=== PATIENT | male | born 1995 | race Caucasian/White ===

== ENCOUNTER 2023-10-27 18:16 | Emergency (ER) | payer SELFPAY ==
[2023-10-27 18:19] VITALS: BP 165/95
[2023-10-27 19:41] VITALS: BP 130/86
[2023-10-27 19:44] VITALS: BMI 34.2
[2023-10-27 20:00] VITALS: BP 132/88
--- NOTE | 2023-10-27 22:35 | ED.GENMED ---
History of Present Illness
General
Chief Complaint: Breathing Problem
Source: patient
Exam Limitations: none
Time Seen by Provider: 10/27/23 19:23
Nursing documentation reviewed up to this point in time: agreed with
History of Present Illness
History of Present Illness:
Patient to ED for eval of cough. Symptoms started 7 days ago 4 days ago he started using musinex with improvement so he discontinued. Tionight he started coughing again and couldnt catch his breath. he then vomitied. This happened again just
prior to coming to ED. No fever/chills. No difficulty swallowing. No sorethroat. Currently he is awake and alert, nontoxic appearing. PUlse ox 99% RA
Past History
Past History
ED Past Medical History: None
Review of Systems
Review of Systems
Allergies reviewed?: Yes
All Other Systems: ROS reviewed and negative except as documented in HPI and ROS
Constitutional: Reports no symptoms
EENT: Reports no symptoms
Respiratory: Reports cough
Cardiac: Reports no symptoms
ABD/GI: Reports no symptoms
: Reports no symptoms
Musculoskeletal: Reports no symptoms
Skin: Reports no symptoms
Neurological: Reports no symptoms
Psychiatric: Reports no symptoms
Phy Exam
General Physical Exam
General Presentation: well appearing and no apparent distress
General age: appears stated age
General Skin: warm and dry
General Habitus: normal
General Mental: alert
ENT Exam
ENT Exam: EOMI, pharynx normal, neck supple, normocephalic and swallowing well
Cardiovascular Exam
Cardiovascular Exam: regular rate/rhythm and no edema
Pulmonary Exam
Pulmonary Exam: lungs clear, no respiratory distress and chest non tender
Musculoskeletal Exam
Musculoskeletal Exam: full ROM and neuro vasc intact
Skin Exam
Skin Exam: normal color, warm/dry and no rash
Psychiatric Exam
Psychiatric Exam: normal mood/affect
Course
Orders/Labs/Results
Orders:
Orders
10/27/23 18:20
EKG [Electrocardiogram (*1)] Urgent
Reason for Study: Shortness of Breath
CR Chest - 2 Views Urgent
Comment:
Reason For Exam: cough
10/27/23 18:21
EKG- Treatment ONCE
10/27/23 20:20
Dexamethasone Pf [Decadron] 10 mg PO NOW STA
Ipratropium/Albuterol Sulfate [Duoneb] 3 ml INH R NOW STA
Vital Signs
Initial and Last Documented VS:
Initial Vital Signs
Temp Pulse Resp BP Pulse Ox
99.5 F 109 18 165/95 100
10/27/23 18:19 10/27/23 18:19 10/27/23 18:19 10/27/23 18:19 10/27/23 18:19
Last Documented Vital Signs
Temp Pulse Resp BP Pulse Ox
98.1 F 95 18 132/88 96
10/27/23 20:00 10/27/23 20:00 10/27/23 20:00 10/27/23 20:00 10/27/23 20:49
*Radiology
Radiology exam reviewed: radiology read reviewed
*Pulse Oximetry
Patient hypoxic: no
*Critical Care Note
Total Time (30-74mins, 75-104mins- exclusive of procedures): Not Applicable
Update Note
Update Note:
Patient remains awake and alert, nontoxic appearing. Pulse ox 99% RA. Declined meds in dept, requesting rx to pharmacy. Given instructions on s/s to return to ED and he is agreeable to plan.
ED Attending Note
-
Portions of this chart may have been created with voice recognition software.� Occasional wrong word or��sound alike� substitutions may have occurred due to the inherent limitations of voice recognition software.
Discharge Plan
Departure
Patient Disposition: Home (Routine Discharge)
Date of Disposition: 10/27/23
Time of Disposition: 20:51
Patient with high blood pressure during this ER visit?: No
Condition: Good
Covid-19: Not Applicable
Discharge Problem:
Acute bronchitis
Instructions: Acute Bronchitis, Adult (DC)
Prescriptions:
New
prednisone 10 mg Tablet
See Rx Instructions .ROUTE .COMPLEX Qty: 30 0RF
Rx Instructions:
Take By Mouth:
40 mg daily x3 days, 30 mg daily x3 days,
20 mg daily x3 days, 10 mg daily x3 days.
albuterol sulfate 2.5 mg /3 mL (0.083 %) solution for nebulization
2.5 mg inhalation Q4H PRN (Reason: bronchospasm) Qty: 90 1RF
Referrals:
NONE,* [Family Provider] -
Activity Restrictions/Additional Instructions:
Follow up with your family doctor. return to the emergency department immediately for any changes in/worsening of your symptoms.
Interventions
Interventions:
*Risk Screen - Suicide Last Done: 10/27/23 21:02
*General Assessment Last Done: 10/27/23 21:02
*Neglect/Abuse Screening Last Done: 10/27/23 21:02
ED- Fall Risk Assessment Last Done: 10/27/23 19:17
*ED COVID-19 Vaccine History Last Done: 10/27/23 21:02
*Nursing Disposition Last Done: 10/27/23 21:02
ED- Cardiac Assessment Last Done: 10/27/23 19:44
ED- Pulmonary Assessment Last Done: 10/27/23 19:44
Discharge Date and Time
Discharge Date/Time: 10/27/23 21:03
Print Language: TAIWANESE
== END 2023-10-27 21:03 | disposition home or self-care (01) ==
LOC: EMR 18:16
PROVIDERS: EMERGENCY PHYSICIAN Emergency Medicine
DX: J20.9 Acute bronchitis, unspecified (principal)
CPT/HCPCS: 99283; 71046; 93005

== ENCOUNTER 2024-03-15 01:35 | Observation (INO) | payer BC, SELFPAY ==
[2024-03-14 18:35] VITALS: BP 138/74
[2024-03-14 18:52] LABS: % Basophils 0.4 % (0-2); % Eosinophils 0.6 % (0-6); % Immature Granulocytes 0.7 % (0-0.5); % Lymphocytes 8.6 % (20.5-51.1); % Neutrophils 83.7 % (42.2-75.2); Absolute Basophils 0.1 10^3/uL (0-0.2); Absolute Eosinophils 0.1 10^3/uL (0-0.7); Absolute Immature Granulocytes 0.1 10^3/uL (0-0.05); Absolute Lymphocytes 1.5 10^3/uL (1.2-3.4); Absolute Monocytes 1.1 10^3/uL (0.1-0.6); Absolute Neutrophils 14.9 10^3/uL (1.4-6.5); Hematocrit 44.3 % (39.0-52.0); Hemoglobin 15.6 g/dL (13.0-18.0); Mean Corp Hgb Conc. 35.2 g/dL (33.0-37.0); Mean Corpuscular Hgb 30.1 pg (27.0-31.0); Mean Corpuscular Volume 85.4 fL (80.0-94.0); Nucleated Red Blood Cells % 0 % (-); Platelet Count 328 10^3/uL (130-400); Red Blood Cell Count 5.19 10^6/uL (4.70-6.10); Red Cell Dist. Width 11.7 % (11.5-14.5); White Blood Cell Count 17.8 10^3/uL (4.8-10.8)
[2024-03-14 19:08] LABS: ALT (SGPT) 33 U/L (0-50); AST (SGOT) 34 U/L (17-59); Albumin 5.1 g/dl (3.5-5.0); Alkaline Phosphatase 96 U/L (38-126); Blood Urea Nitrogen 17 mg/dl (9-20); Carbon Dioxide 23 mmol/L (22-30); Chloride 99 mmol/L (98-107); Glucose 128 mg/dl (70-99); Lipase 77 U/L (23-300); Potassium 3.3 mmol/L (3.5-5.1); Sodium 136 mmol/L (135-145); Total Bilirubin 0.7 mg/dl (0.2-1.3); eGFR > 60.00
[2024-03-14 20:17] VITALS: BP 133/80
[2024-03-14 22:37] VITALS: BMI 34.5
[2024-03-14 22:43] VITALS: BP 135/85
[2024-03-14] MEDS: ZOFRAN 4 MG IV (23:28)
--- NOTE | 2024-03-14 23:28 | ED.GENMED ---
History of Present Illness
General
Chief Complaint: Abdominal Pain
Time Seen by Provider: 03/14/24 23:02
History of Present Illness
History of Present Illness:
28-year-old otherwise healthy male presents to the emergency department for evaluation of right lower quadrant abdominal pain beginning earlier today associated with nausea and vomiting. Pain is colicky in nature and radiates across the entire
abdomen. No history of abdominal surgery. No fevers or chills. No diarrhea.
Past History
Past History
ED Past Medical History: None
Review of Systems
Review of Systems
Allergies reviewed?: Yes
All Other Systems: ROS reviewed and negative except as documented in HPI and ROS
Phy Exam
Physical Exam
Physical Exam:
GEN: Well appearing, NAD, WDWN
HEENT: Oral mucosa moist, no scleral icterus
Cardiac: Regular rate
Lung: No respiratory distress, no tachypnea
Abdomen: Soft, focal right lower quadrant tenderness, no rigidity or peritoneal signs
MSK: No gross deformity or injuries
Skin: Good color, no pallor or jaundice, no rashes
Neuro: AO x3, moves all extremities freely
Psych: Calm, cooperative
Course
Orders/Labs/Results
Orders:
Orders
03/14/24 18:46
Complete Blood Count/With Diff Urgent
Comprehensive Metabolic Panel Urgent
Lipase Urgent
03/14/24 20:06
EKG [Electrocardiogram (*1)] Urgent
Reason for Study: Shortness of Breath
03/14/24 20:07
EKG- Treatment ONCE
03/14/24 23:25
HYDROmorphone [Dilaudid] 0.5 mg .ROUTE .STK-MED ONE
Ondansetron Injectable [Zofran] 4 mg .ROUTE .STK-MED ONE
03/14/24 23:27
Ondansetron Injectable [Zofran] 4 mg IV NOW STA
03/14/24 23:28
CT Abd/Pel (IV only)-DH only Urgent
Comment:
Reason For Exam: RLQ pain
HYDROmorphone [Dilaudid] 0.5 mg IV NOW STA
03/15/24 00:17
Piperacillin/Tazo 3.375 Gram [Zosyn] 3.375 gram in 50 ml IV NOW
03/15/24 01:13
Admit/Transfer Patient As Directed
Co-Sign Provider:
Level of Care: Observation services
Assign to:: Medical/Surgical
Physician / Group: [facility]/general surgery service
Diagnosis: acute appendicitis
03/15/24 01:14
PRN Pain Medication Management As Directed
May give lesser potent ordered pain med per pt: Yes
preference::
Protocol:: Medication orders for pain may be administered in a
manner that supports deferring to patient preference
when the pt is:
- Requesting an ordered lesser potent pain medication.
Least to most potent pain medications are defined
as: acetaminophen < NSAID < tramadol < opioids
(morphine, oxycodone, hydromorphone).
- Requesting a lesser dose of the same medication IF
ORDERED.
- Requesting a less intrusive route of administration
if both routes are prescribed by the provider (PO <
IV).
03/15/24 01:15
Code Status As Directed
Resuscitation Status: Full Code
Abnormal Lab Results
03/14/24
18:46
WBC 17.8 H 10^3/uL
(4.8-10.8)
Abs Immat Gran (auto) 0.1 H 10^3/uL
(0-0.05)
Absolute Neuts (auto) 14.9 H 10^3/uL
(1.4-6.5)
Absolute Monos (auto) 1.1 H 10^3/uL
(0.1-0.6)
Immature Gran % 0.7 H %
(0-0.5)
Neutrophils % 83.7 H %
(42.2-75.2)
Lymphocytes % 8.6 L %
(20.5-51.1)
Potassium 3.3 L mmol/L
(3.5-5.1)
Glucose 128 H mg/dl
(70-99)
Albumin 5.1 H g/dl
(3.5-5.0)
03/14/24 18:46
03/14/24 18:46
Vital Signs
Initial and Last Documented VS:
Initial Vital Signs
Temp Pulse Resp BP Pulse Ox
98.1 F 89 20 138/74 99
03/14/24 18:35 03/14/24 18:35 03/14/24 18:35 03/14/24 18:35 03/14/24 18:35
Last Documented Vital Signs
Temp Pulse Resp BP Pulse Ox
98.1 F 91 16 109/63 96
03/14/24 18:35 03/15/24 03:14 03/15/24 03:15 03/15/24 03:14 03/15/24 03:15
MDM/Problems Addressed
MDM/Problems Addressed:
Imaging reveals acute appendicitis. Patient will be admitted to the surgical service for operative intervention, IV antibiotics initiated
*Critical Care Note
Total Time (30-74mins, 75-104mins- exclusive of procedures): Not Applicable
ED Attending Note
-
Portions of this chart may have been created with voice recognition software.� Occasional wrong word or��sound alike� substitutions may have occurred due to the inherent limitations of voice recognition software.
Discharge Plan
Departure
Patient Disposition: Admit
Date of Disposition: 03/15/24
Time of Disposition: 00:23
Presentation/result/management discussed w/ accepting MD/DO: General Surgery
Discharge Problem:
Acute appendicitis
Interventions
Interventions:
*Risk Screen - Suicide Last Done: 03/14/24 18:35
*General Assessment Last Done: 03/14/24 18:35
*Neglect/Abuse Screening Last Done: 03/14/24 18:35
ED- Fall Risk Assessment Last Done: 03/14/24 22:51
*ED COVID-19 Vaccine History Last Done: 03/14/24 22:38
WP-Ycnaxz-Ytbhoqingh Assessment Last Done: 03/14/24 23:12
[2024-03-14] MEDS: DILAUDID 0.5 MG IV (23:30)
[2024-03-14 23:50] VITALS: BP 153/74
[2024-03-15] VITALS (18 sets, daily range): BP systolic 92–146; BP diastolic 60–84
[2024-03-15] MEDS: ZOSYN 50 IV ×3 (00:42→12:11)
--- NOTE | 2024-03-15 03:21 | HPS.HSE ---
Addendum entered and electronically signed by Christiano Che MD 03/15/24 08:56:
I saw and examined the patient independently.
The Piping Blocker's note was reviewed and I agree with the note, assessment and plan except where noted below.
Comment: This is a 28-year-old male who presents with a 1 day history of abdominal pain. Exam, imaging, blood work all consistent with acute appendicitis.
Will plan for a laparoscopic appendectomy in the OR today.
N.p.o., IV fluids, IV antibiotics.
Risks/Benefits/Alternatives, expected postoperative course and possible complications (bleeding, infection, injury to surrounding structures, acute/chronic pain) discussed at length. Patient wishes to proceed with surgery. All questions answered.
Consent obtained.
I spent 50 minutes in total for the care of this patient today including direct patient care and counseling, reviewing labs, imaging, coordination of care, as well as documentation.
Original Note:
Family Physician
-
Family Physician: * NONE
Chief Complaint
-
abdominal pain with N/V
History of Present Illness
This is a pleasant 28 year old male who comes to the ED with his significant other due to diffuse abdominal pain which comes in waves along with intermittent nausea and vomiting. No other associated symptoms such as diarrhea, sob, CP or dysuria. He
is tender in RLQ on palpation. No PMH. Was seen here in October 2023 for bronchitis which resolved with albuterol inhaler and steroid taper. 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
products. During this interview he was thrilled he was feeling much better.
Medical History
Past Medical History
Past Medical History: Reports Other (bronchitis)
Past Surgical History: Reports None
Social History
Tobacco: Non-smoker
Alcohol: Occasional
Drug: None
Personal: Single
Living: With Family
Employment: Employed
Family History
Family History: Not pertinent
Allergies / Home Medications
Allergies reflects when Allergies were last updated in [employer].
Home Medications with original date entered in [employer]
Allergy/Medication List:
Allergies
Allergy/AdvReac Type Severity Reaction Status Date / Time
Fish Containing Products Allergy Anaphylaxis Verified 03/14/24 18:38
shellfish derived Allergy Anaphylaxis Verified 03/14/24 18:38
Home Medications
albuterol sulfate 2.5 mg/3 mL (0.083 %) solution for nebulization 2.5 mg (3 mL) inhalation Q4H PRN bronchospasm #90 mL 10/27/23
prednisone 10 mg tablet See Rx Instructions .Route .COMPLEX #30 tabs 10/27/23
Review of Systems
-
A 12 point ROS was completed and negative except as noted: Yes
Constitutional: Reports No Symptoms
EENT: Reports No Symptoms
Respiratory: Reports No Symptoms
Cardiac: Reports No Symptoms
Abdomen/GI: Reports Abdominal Pain
: Reports No Symptoms
Musculoskeletal: Reports No Symptoms
Skin: Reports No Symptoms
Endocrine: Reports No Symptoms
Hematologic/Lymphatic: Reports No Symptoms
Psych: Reports No Symptoms
Physical Exam
Vital Signs
Vital Signs
Temp Pulse Resp BP Pulse Ox
98.1 F 91 16 109/63 96
03/14/24 18:35 03/15/24 03:14 03/15/24 03:15 03/15/24 03:14 03/15/24 03:15
Physical Exam
General: Well Developed, Well Nourished, No Apparent Distress and Comfortable
HEENT: NormoCephalic, Moist mucous membranes, Atraumatic and PERRLA
Respiratory: Clear and Non Labored Respirations
Cardiac: S1/S2 and Regular Rhythm
Breast: Deferred by me
GI: Soft, Non Distended, Tender (Right) and No Hepatosplenomegaly
Genito-urinary: Clear Urine
Musculoskeletal: No Clubbing, No Cyanosis and No Edema
Skin: Warm and Dry
Neuro: Awake, Alert, AO x 3 and No Motor Deficits
Hematologic/Lymphatic: No Lymphadenopathy
Psych: Calm
Laboratory Results
-
03/14/24 18:46
03/14/24 18:46
Laboratory Results
Total Bilirubin 0.7 mg/dl (0.2-1.3) 03/14/24 18:46
AST 34 U/L (17-59) 03/14/24 18:46
ALT 33 U/L (0-50) 03/14/24 18:46
Alkaline Phosphatase 96 U/L (38-126) 03/14/24 18:46
Lipase 77 U/L (23-300) 03/14/24 18:46
Data Reviewed
-
CT Scan: Report Reviewed by me
Lab Data: Labs Reviewed by me
Old Records: Reviewed
Impression/Plan
-
IMPRESSION: acute appendicitis
PLAN: This is a pleasant 28 year old male who comes to the ED with his significant other due to diffuse abdominal pain which comes in waves along with intermittent nausea and vomiting. No other associated symptoms such as diarrhea, sob, CP or
dysuria. He is tender in RLQ on palpation. No PMH. Was seen here in October 2023 for bronchitis which resolved with albuterol inhaler and steroid taper. He takes no medications on regular basis and has anaphylaxis reaction to shellfish and other
fish-containing products. During this interview he was thrilled he was feeling much better.
*Acute appendicitis: NPO, IVF, zofran prn, dilaudid prn, Zosyn
*Hypokalemia: Normosol IVF, trend
*Leukocytosis: Zosyn, trend
*DVT prophylaxis: SCDs, oob ad dong.
*Disposition: FC. General surgery service.
[2024-03-15 06:33] LABS: Hematocrit 41.8 % (39.0-52.0); Hemoglobin 14.7 g/dL (13.0-18.0); Mean Corp Hgb Conc. 35.2 g/dL (33.0-37.0); Mean Corpuscular Volume 88.2 fL (80.0-94.0); Mean Platelet Volume 9.1 fL (7.4-10.4); Platelet Count 297 10^3/uL (130-400); Red Blood Cell Count 4.74 10^6/uL (4.70-6.10); Red Cell Dist. Width 11.8 % (11.5-14.5); White Blood Cell Count 14.7 10^3/uL (4.8-10.8)
[2024-03-15 06:49] LABS: Blood Urea Nitrogen 12 mg/dl (9-20); Calcium 9.4 mg/dl (8.4-10.2); Carbon Dioxide 25 mmol/L (22-30); Chloride 100 mmol/L (98-107); Estimated Creatinine Clearance > 125 ml/min; Glucose 116 mg/dl (70-99); Sodium 135 mmol/L (135-145); eGFR > 60.00
[2024-03-15] MEDS: NORMOSOL-R/PLASMALYTE-A 1000 IV (07:04)
[2024-03-15] MEDS: ZOFRAN 4 MG IV (07:06)
[2024-03-15] MEDS: DILAUDID 0.5 MG IV (07:07)
--- NOTE | 2024-03-15 07:27 | EDRN ---
the pt was received from previous film processing shift supervisor RN, the pt is resting in stretcher in the lowest position, side rails up x2 call kennedy within reach, HOB elevated, no s/s of distress, VS WNL, NSR in the 80's on the monitor, the pt is afebrile, the pt
was medicated for nausea and abdominal pain, Normosol was initiated by this RN @ 80cc/hour via RAC #[address], the pt denies needing anything at this time, the pt was educated on NPO status and the pt is agreeable to this, the pt states that
he has not yet seen a surgeon to discuss 'possible surgery options today', this RN notified the pt that someone would be in to speak with him, the pts is at the pts bedside, will continue to monitor the pt closely
--- NOTE | 2024-03-15 08:26 | EDRN ---
the pt pressed the call kennedy and this RN entered the pts room and the pt stated that he needed to use the bathroom, the pt was able to ambulate to the bathroom independently and back to the stretcher with no issues
--- NOTE | 2024-03-15 08:42 | EDRN ---
Johana from the OR called this RN and verbal report was given
--- NOTE | 2024-03-15 08:56 | W.SUR.PREOP ---
Pre-Operative Surgical Note
-
I have examined this patient prior to the performance of the scheduled procedure.
The patient's condition is unchanged from the time of the current History and
Physical and the patient is able to undergo the scheduled procedure.
[2024-03-15] MEDS: SUBLIMAZE 25 MCG IV (10:47)
--- NOTE | 2024-03-15 11:01 | W.IMMPOSTOP ---
Surgical Immed Post Op Note
-
Primary Surgeon: Christiano Che MD
Assisting Surgeon: None
Pre-op Diagnosis: Acute appendicitis
Post-op Diagnosis: Same
Procedure Performed: Laparoscopic appendectomy
Anesthesia Type: General
Specimen / Cultures: Appendix
Estimated Blood Loss: 1 cc
Complications: None
Operative Findings: 3 port appendectomy. Inflamed, nonperforated appendicitis. Base ligated with 0 PDS Endoloops x 2.
POST OP PLAN:
Will discharge home today
--- NOTE | 2024-03-15 11:02 | OR.RPT ---
Operative Report
Operative Report
Patient Name: Radha Del Rio
: 1995
Date of Operation: 03/15/2024
Preoperative Diagnosis: Acute Appendicitis
Postoperative Diagnosis: Same
Procedure(s):
Laparoscopic Appendectomy
Surgeon(s):
Dr. Che
Trial Attorney(s):
Isidoro Fragosoler
Anesthesia: General
Estimated Blood Loss: 1 cc
Urine Output: None
Drains/Lines/Implants: None
Specimens:
1. Appendix
HPI/Surgical Indications:
This is a 28-year-old male who presents with a 1 day history of abdominal pain. Exam, labs and imaging are consistent with acute appendicitis. Risks/Benefits/Alternatives were discussed at length, and the patient agreed to proceed with surgery.
Operative Findings: 3 port appendectomy. Inflamed, nonperforated appendicitis. Base ligated with 0 PDS Endoloops x 2.
Procedure Description:
The patient was placed in the supine position, with the left arm tucked, and general anesthesia was induced. The abdomen was prepared and draped in a sterile fashion so as to expose the entire abdomen. A surgical time out was taken. Abdominal access
was obtained with a left upper quadrant Veress entry which required a single pass. Due to his muscular nature the abdomen did not insufflate rapidly but we did confirm intra-abdominal access after placing a left lower quadrant 5 mm Optiview trocar.
After confirming no injury on entrance, two additional 5mm ports were placed in the suprapubic area just off midline and just to the left of the umbilicus. The patient was placed in Trendelenberg with the right slightly up . The appendix was
identified and a window was created in the mesoappendix. The appendix was suppurative and inflamed but not perforated, there was a bulbous portion in the midportion of the appendix that appeared somewhat gelatinous and could be appreciated through
the wall of the appendix but the capsule was not violated. Using a laparoscopic bipolar energy device, the meso appendix was divided. The base of the appendix appeared uninvolved and was ligated/divided using two 0-PDS Endoloops and the energy
device. The appendix was placed in a specimen retrieval bag. Hemostasis was confirmed and the ports were removed under visualization. The specimen was passed off the field. The skin for all three ports was closed with interrupted monocryls and
covered with dermabond. The patient was awoken from anesthesia in good condition and transported to the recovery area.
I was the attending physician and performed the procedure with assistance from the PRESSFITTER above. I was present for all portions of the case excluding skin closure.
Christiano Che MD
== END 2024-03-15 12:49 | disposition home or self-care (01) ==
LOC: PACUI 01:35
PROVIDERS: Emergency Medicine; Registered Nurse; ADMITTING PHYSICIAN Surgery; EMERGENCY PHYSICIAN Emergency Medicine
DX: K35.80 Unspecified acute appendicitis (principal); R10.9 Unspecified abdominal pain; R06.02 Shortness of breath; R11.2 Nausea with vomiting, unspecified; E87.6 Hypokalemia; D72.829 Elevated white blood cell count, unspecified; N28.1 Cyst of kidney, acquired; K42.9 Umbilical hernia without obstruction or gangrene; Z91.013 Allergy to seafood
CPT/HCPCS: 44970; 88304; 74177; 80048; 80053; 83690; 85025; 85027; 88341; 88342; 93005; 96374; 96375; 99285; C1776; G0378; Q9967